=== PATIENT | female | born 1990 | race American Indian/Alaskan Native ===

== ENCOUNTER 2016-09-15 20:23 | Emergency (ER) | payer MEDICAID ==
[2016-09-15] MEDS ORDERED: PROVENTIL IH ONE (22:26)
[2016-09-16 00:14] VITALS: BP 141/102
--- NOTE | 2016-09-16 19:01 | ED Elopement Review ---
ED Pt Elopement review - Call Back decision Pt Call Back Decision: Pt to F/U with PMD
== END 2016-09-16 05:36 | disposition left against medical advice (07) ==
LOC: ED 20:23
DX: R06.09 Other forms of dyspnea (principal); M54.9 Dorsalgia, unspecified; Z53.21 Procedure and treatment not carried out due to patient leaving prior to being seen by health care provider
CPT/HCPCS: 94644

== ENCOUNTER 2017-08-01 20:06 | Outpatient (CLI) | payer MEDICAID ==
[2017-08-01 20:24] VITALS: BP 98/57
[2017-08-01] MEDS ORDERED: LACTATED RINGERS 500 ML IV ONE (20:28)
[2017-08-01] MEDS ORDERED: LACTATED RINGERS 1,000 ML IV ONE (20:30)
[2017-08-01 21:07] LABS: Bacteria,Urine 1+ /HPF (Negative); Bilirubin,Urine NEG (Negative); Blood,Urine SM (Negative); Color,Urine Yellow (Yellow); Mucus,Urine 2+ /HPF
[2017-08-01 21:08] LABS: WBC,Urine > 182.0 /HPF (0.0-6.0)
[2017-08-01 22:00] LABS: Basophils % (Auto) 0.1 % (0.0-1.8); Hematocrit 32.2 % (30.3-42.9); Hemoglobin 10.6 gm/dl (10.1-14.3); Lymphocytes # (Auto) 0.6 K/mm3 (1.2-5.4); Lymphocytes % (Auto) 7.4 % (13.4-35.0); Mean Corpuscular HGB Conc 33 % (30-34); Mean Corpuscular Hemoglobin 29 pg (28-32); Mean Corpuscular Volume 87 fl (79-97); Monocytes # (Auto) 0.6 K/mm3 (0.0-0.8); Monocytes % (Auto) 7.9 % (0.0-7.3); Platelet Count 157 K/mm3 (140-440); Red Blood Count 3.71 M/mm3 (3.65-5.03); Red Cell Distribution Width 14.8 % (13.2-15.2)
[2017-08-01] MEDS ORDERED: POLYCILLIN/NS 2 GM/100 ML 2 GM/100 ML BAG IV SCH (22:00)
== END 2017-08-01 21:35 | disposition home or self-care (01) ==
LOC: TRG 20:06
PROVIDERS: ATTEND Obstetrics & Gynecology
DX: O26.899 Other specified pregnancy related conditions, unspecified trimester (principal); R50.9 Fever, unspecified; R10.9 Unspecified abdominal pain; Z3A.00 Weeks of gestation of pregnancy not specified
CPT/HCPCS: 36415; 59025; 81001; 85025; 96360; 96365; J0290; J7120

== ENCOUNTER 2017-08-07 15:09 | Outpatient (CLI) | payer MEDICAID ==
[2017-08-07 16:08] LABS: Bacteria,Urine 1+ /HPF (Negative); Bilirubin,Urine NEG (Negative); Blood,Urine LG (Negative); Color,Urine Yellow (Yellow); Protein,Urine <15 mg/dL mg/dL (Negative); Urobilinogen,Urine < 2.0 mg/dL (<2.0)
[2017-08-07 16:32] LABS: Basophils % (Auto) 0.3 % (0.0-1.8); Eosinophils % (Auto) 0.1 % (0.0-4.3); Hematocrit 28.1 % (30.3-42.9); Hemoglobin 9.2 gm/dl (10.1-14.3); Lymphocytes # (Auto) 1.1 K/mm3 (1.2-5.4); Lymphocytes % (Auto) 20.9 % (13.4-35.0); Mean Corpuscular HGB Conc 33 % (30-34); Mean Corpuscular Hemoglobin 28 pg (28-32); Mean Corpuscular Volume 87 fl (79-97); Monocytes # (Auto) 0.3 K/mm3 (0.0-0.8); Monocytes % (Auto) 5.4 % (0.0-7.3); Platelet Count 192 K/mm3 (140-440); Red Blood Count 3.24 M/mm3 (3.65-5.03); Red Cell Distribution Width 14.9 % (13.2-15.2)
[2017-08-07 16:36] LABS: Amphetamine Screen,Urine PRESUMPTIVE NEGATIVE; Benzodiazepines Screen,Urine PRESUMPTIVE NEGATIVE; Cannabinoid Screen,Urine PRESUMPTIVE NEGATIVE; Cocaine Screen,Urine PRESUMPTIVE NEGATIVE; Methadone Screen,Urine PRESUMPTIVE NEGATIVE; Opiate Screen,Urine PRESUMPTIVE NEGATIVE
[2017-08-07 17:01] LABS: Hepatitis C Virus Antibody Non-Reactive (NonReactive)
--- NOTE | 2017-08-07 17:22 | Ultrasound Report ---
FINAL REPORT EXAM: US OB > = 14 WEEKS FETUS HISTORY: NO CARE TECHNIQUE: Grayscale and color doppler ultrasound of the fetus was performed for anatomic survey. PRIORS: None. FINDINGS: A single, live intrauterine fetus is present in cephalic presentation with a heart rate of 139 beats per minute. The placenta is grade 1 and fundal in location. No evidence of placenta previa. The maternal cervix is closed measuring 3.3 centimeters in length. The amniotic fluid index is 13.6 centimeters. The 4 chamber view of the heart, stomach, urinary bladder, and kidneys demonstrate no specific abnormality. The cerebellum and cisterna magna were not well seen. No lateral ventricle dilation. The umbilical cord insertion appears normal. The upper and lower extremities are present. The spine was visualized in its entirety without definite or specific abnormality. Biparietal diameter: 32 weeks and 1 day. Head circumference: 34 weeks and 4 days. Abdominal circumference: 34 weeks and 4 days. Femur length: 36 weeks and 0 days. Estimated gestational age based on ultrasound criteria is 34 weeks and 2 days with an SANKET of 09/16/2016. Growth is at the 77th percentile. Estimated weight is 2500 grams. IMPRESSION: 1. Live intrauterine fetus measuring at 34 weeks and 2 days gestational age with an SANKET of 09/16/2016. 2. Nonvisualized cerebellum and cisterna magna, otherwise normal anatomic survey.
--- NOTE | 2017-08-07 17:24 | Ultrasound Report ---
FINAL REPORT EXAM: US OB BPP WO NON-STRESS HISTORY: WELL BEING TECHNIQUE: Grayscale and color doppler ultrasound of the fetus was performed for biophysical profile. PRIORS: None. FINDINGS: A single, live intrauterine fetus is present in cephalic presentation with a heart rate of 139 beats per minute. The placenta is fundal in location. The amniotic fluid index is 13.6 centimeters. Estimated gestational age is 33 weeks and 4 days with an SANKET of 12/15/2016. Biophysical profile score of 8 out of 8 was noted. Scores of 2 out of 2 were given for breathing movements, movements, posterior and tone and qualitative amniotic fluid volume. IMPRESSION: Normal biophysical profile.
[2017-08-07 17:42] LABS: Rubella IgG Antibody Non-Immune (Immune)
[2017-08-09 12:08] VITALS: BP 125/72
== END 2017-08-07 17:34 | disposition home or self-care (01) ==
LOC: TRG 15:09
PROVIDERS: ATTEND Obstetrics & Gynecology
DX: O47.03 False labor before 37 completed weeks of gestation, third trimester (principal); Z79.899 Other long term (current) drug therapy; Z3A.34 34 weeks gestation of pregnancy
CPT/HCPCS: 36415; 59025; 76805; 76819; 80307; 81001; 85025; 85660; 86592; 86706; 86762; 86803; 86850; 86870; 86900; 86901; 87086; 87806

== ENCOUNTER 2017-08-08 02:24 | Inpatient (IN) | payer MEDICAID ==
[2017-08-08] MEDS ORDERED: LACTATED RINGERS 500 ML IV ONE (02:45)
[2017-08-08] MEDS ORDERED: PITOCin/NS 20 UNIT/1000ML DRIP 20,000 MILLIUNITS/1,000 ML BAG IV ONE (03:06)
[2017-08-08] MEDS ORDERED: XYLOCAINE 2% INFILTRATI ONE ×2 (03:07→03:16)
[2017-08-08] MEDS ORDERED: BRETHINE IVP PRN (03:16)
[2017-08-08] MEDS ORDERED: BRETHINE SUB-Q PRN (03:16)
[2017-08-08] MEDS ORDERED: ePHEDrine SULFATE IV PRN (03:16)
[2017-08-08] MEDS ORDERED: MINERAL OIL PO PRN (03:16)
[2017-08-08] MEDS ORDERED: POLYCILLIN/NS 2 GM/100 ML 2 GM/100 ML BAG IV ONE (03:16)
[2017-08-08] MEDS ORDERED: ZOFRAN IV PRN ×2 (03:16→05:01)
--- NOTE | 2017-08-08 03:28 | History and Physical Report ---
History of Present Illness Date of examination: 08/08/17 Date of admission: 08/08/17 03:14 Chief complaint: Painful contractions Patient is 8 cm dilated History of present illness: 27 y/o at ~ 34 wks via sono yesterday returns to [facility] with complaint of painful contractions, she is now ~ 8 cm dilated. Essential hx is patient with no PNC presented to [facility] yesterday afternoon with complaint of VB. She was observed and worked up including complete sono with cervical length. She was ~ 34 wks, cephalic, fundal placenta with cervical length of ~ 3 cm. She has cat 1 tracing and BPP of 8/8. She was not having contractions and was not in labour. She was discharged home and asked to schedule f/u with an OBGYN TEJAL. She is now ~ 8 cm with regular painful contractions. Past History Past Medical History: no pertinent history Past Surgical History: no surgical history [employer] History: chlamydia. denies: gonorrhea, hepatitis B, hepatitis C, herpes, HIV, syphilis, trichomonas Family/Genetic History: denies: hypertension Social history: , full code. denies: smoking, alcohol abuse, prescription drug abuse, IV drug use - Obstetrical History Expected Date of Delivery: 09/16/17 Actual Gestation: 34 Week(s) 3 Day(s) : 4 Para: 3 Hx # Term Pregnancies: 3 Number of Pregnancies: 0 Number of Living Children: 3 Medications and Allergies Allergies Allergy/AdvReac Type Severity Reaction Status Date / Time No Known Allergies Allergy Verified 12/31/13 19:10 Home Medications Medication Instructions Recorded Confirmed Last Taken Type No Known Home Medications [No 08/07/17 08/07/17 Unknown History Reported Home Medications] Active Meds: Active Medications Ephedrine Sulfate (Ephedrine Sulfate) 10 mg IV Q2M PRN PRN Reason: Hypotension Ampicillin Sodium (Polycillin/Ns 2 Gm/100 Ml) 2 gm in 100 mls @ 100 mls/hr IV ONCE ONE; Protocol Stop: 08/08/17 04:15 Ampicillin Sodium (Ampicillin/Ns 1 Gm/50 Ml) 1 gm in 50 mls @ 100 mls/hr IV Q4HR NILESH; Protocol Lactated Ringer's (Lactated Ringers) 1,000 mls @ 125 mls/hr IV DIRECT NILESH Oxytocin/Sodium Chloride (Pitocin/Ns 20 Unit/1000ml Drip) 20 units in 1,000 mls @ 125 mls/hr IV DIRECT NILESH Oxytocin/Sodium Chloride (Pitocin/Ns 30 Unit/500ml) 30 units in 500 mls @ 1 mls /hr IV TITR NILESH; Protocol Lidocaine (Xylocaine 2%) 20 ml INFILTRATI ONCE ONE Stop: 08/08/17 03:17 Mineral Oil (Mineral Oil) 30 ml PO QHS PRN PRN Reason: Constipation Ondansetron HCl (Zofran) 4 mg IV Q8H PRN PRN Reason: Nausea And Vomiting Terbutaline Sulfate (Brethine) 0.25 mg SUB-Q ONCE PRN PRN Reason: Hyperstimulation/Hypertonicity Terbutaline Sulfate (Brethine) 0.25 mg IVP ONCE PRN PRN Reason: Hyperstimulation/Hypertonicity Review of Systems Constitutional: no fever, no chills, no sweats Cardiovascular: no chest pain, no orthopnea, no lightheadedness, no shortness of breath, no dyspnea on exertion, no paroxysmal nocturnal dyspnea, no high blood pressure Respiratory: no excessive sputum, no shortness of breath, no dyspnea on exertion , no respiratory infections Gastrointestinal: no nausea, no vomiting Genitourinary: contractions, no vaginal bleeding, no vaginal discharge, no leakage of fluid - Vital Signs Vital signs: Vital Signs Temp Resp 97.9 F 20 08/08/17 02:25 08/08/17 02:25 Temp Pulse Resp BP Pulse Ox 97.9 F 20 08/08/17 02:25 08/08/17 02:25 - Physical Exam Cardiovascular: Regular rate, Normal S1, Normal S2 Lungs: Positive: Clear to auscultation, Normal air movement Abdomen: Positive: normal appearance, soft. Negative: distention, tenderness, guarding, rigidity Genitourinary (Female): Positive: normal external genitalia Uterus: Positive: enlarged (EFW ~ 3000) Adnexa: both: normal Extremities: Positive: normal - Obstetrical FHR: category 1 Cervical Dilatation: 8 Results All other labs normal. Assessment and Plan A: 27 y/o at 34 weeks in active labour -Cat 1 tracing -In active labour issues -No care -Already 8 cm -Cervical dilation to advanced for BMZ course P: -Admit -routine labs -GBS prophylaxis -Epidural prn -Expectant mgt - Patient Problems (1) 34 weeks gestation of Current Visit: Yes Status: Acute (2) labor in third trimester Current Visit: Yes Status: Acute (3) No care in current Current Visit: Yes Status: Acute
[2017-08-08] MEDS ORDERED: CELESTONE SOLUSPAN IM ONE (03:55)
--- NOTE | 2017-08-08 03:57 | Event Note ---
Date: 08/08/17 Patient with no cervical change in ~ 30 min. Still 8 cm with bulging membrane. Will administer celFunny Or Die course # 1 now and continue expectant mgt.
[2017-08-08] MEDS ORDERED: PITOCin/NS 20 UNIT/1000ML DRIP 20 UNITS/1,000 ML BAG IV SCH (04:00)
[2017-08-08] MEDS ORDERED: PITOCin/NS 30 UNIT/500ML 30 UNITS/500 ML BAG IV SCH (04:00)
[2017-08-08] MEDS ORDERED: LACTATED RINGERS 1,000 ML IV SCH (04:00)
[2017-08-08 04:46] LABS: Amphetamine Screen,Urine PRESUMPTIVE NEGATIVE; Benzodiazepines Screen,Urine PRESUMPTIVE NEGATIVE; Cannabinoid Screen,Urine PRESUMPTIVE NEGATIVE; Cocaine Screen,Urine PRESUMPTIVE NEGATIVE; Methadone Screen,Urine PRESUMPTIVE NEGATIVE; Opiate Screen,Urine PRESUMPTIVE NEGATIVE
[2017-08-08 04:51] LABS: Bilirubin,Urine NEG (Negative); Blood,Urine LG (Negative); Color,Urine Yellow (Yellow); Protein,Urine <15 mg/dL mg/dL (Negative)
[2017-08-08] MEDS ORDERED: NORCO 5/325 PO PRN (05:01)
[2017-08-08] MEDS ORDERED: LANSINOH TP PRN (05:01)
[2017-08-08] MEDS ORDERED: BENADRYL PO PRN (05:01)
[2017-08-08] MEDS ORDERED: DULCOLAX PR PRN (05:01)
[2017-08-08] MEDS ORDERED: TYLENOL PO PRN (05:01)
[2017-08-08] MEDS ORDERED: PHENERGAN PO PRN (05:01)
[2017-08-08] MEDS ORDERED: METHERGINE IM PRN (05:01)
[2017-08-08] MEDS ORDERED: MILK OF MAGNESIA PO PRN (05:01)
[2017-08-08] MEDS ORDERED: PHENERGAN PR PRN (05:01)
[2017-08-08] MEDS ORDERED: TUCKS PAD TP PRN (05:01)
--- NOTE | 2017-08-08 05:01 | Procedure Note ---
OB Delivery Note - Delivery Date of Delivery: 08/08/17 Surgeon: ELENITA MARQUEZ Estimated blood loss: 200cc - Vaginal Delivery presentation: vertex Delivery position: OA Intrapartum events: no care Delivery induction: none Delivery monitor: external FHT, external uterine Route of delivery: Delivery placenta: spontaneous Delivery cord: 3 umbilical vessels Episiotomy: none Delivery laceration: none Anesthesia: none - Infant A at 1 minute: 8 at 5 minutes: 9 Infant Gender: Male (Del @ 04:45 am, weight is 5#10 or 2550 g)
[2017-08-08] MEDS ORDERED: SODIUM CHLORIDE FLUSH SYRINGE 10 ML IV PRN (06:00)
[2017-08-08] MEDS ORDERED: AMPICILLIN/NS 1 GM/50 ML 1 GM/50 ML BAG IV SCH (07:30)
[2017-08-08] MEDS: MOTRIN PO SCH ×3 (12:00→23:20)
[2017-08-08 17:07] LABS: Hematocrit 30.2 % (30.3-42.9); Hemoglobin 10.1 gm/dl (10.1-14.3)
[2017-08-08] MEDS: FEOSOL PO SCH ×2 (18:04→23:19)
[2017-08-08] MEDS: COLACE PO SCH ×2 (18:04→23:20)
[2017-08-08] MEDS: PRENATAL VITAMIN PO SCH (18:05)
[2017-08-09] MEDS: SENOKOT S PO SCH ×2 (00:52→22:18)
[2017-08-09] MEDS ORDERED: M-M-R II VACCINE SUB-Q ONE (05:01)
[2017-08-09] MEDS: MOTRIN PO SCH ×3 (05:20→18:45)
[2017-08-09] MEDS ORDERED: BOOSTRIX IM ONE (06:00)
--- NOTE | 2017-08-09 14:22 | Progress Note ---
Assessment and Plan A: Day 1, Stable No care P: Routine care Plan discharge today, pending discharge Subjective - Subjective Date of service: 08/09/17 Principal diagnosis: S/P , no care Patient reports: appetite normal, voiding normally, pain well controlled, ambulating normally : doing well Objective - Vital Signs Latest vital signs: Vital Signs Temp Pulse Resp BP BP Pulse Ox 08/09/17 08:50 98.4 F 62 18 121/65 98 08/08/17 23:35 70 18 125/68 98 08/08/17 16:55 98.5 F 78 18 133/76 99 Intake and Output 08/08/17 08/09/17 08/09/17 23:59 07:59 15:59 Intake Total 960 240 360 Output Total 1 1 Balance 960 239 359 Intake: Oral 600 240 240 Intake, Free Water 360 120 Output: Urine 1 1 Void 1 1 Other: Total, Intake Amount 240 240 240 Total, Output Amount 1 1 # Voids Indwelling Catheter 1 - Exam Breasts: Present: deferred Cardiovascular: Present: Regular rate Lungs: Present: Clear to auscultation Abdomen: Present: normal appearance, soft Vulva: both: normal Uterus: Present: normal, firm, fundal height below umbilicus Extremities: Present: normal Deep Tendon Reflex Grade: Normal +2 - Labs Labs: Abnormal lab results 08/08/17 Range/Units 16:53 Hct 30.2 L (30.3-42.9) %
--- NOTE | 2017-08-09 14:25 | Discharge Summary ---
Providers - Providers Date of Admission: 08/08/17 03:14 Date of discharge: 08/09/17 Attending physician: ELENITA MARQUEZ Primary care physician: DEBBIE ART Hospitalization Reason for admission: active labor, IUP - , labor Delivery: Episiotomy: none Laceration: none Other procedures: none complications: none Discharge diagnosis: delivery [place] baby: male (5#10) Condition at discharge: Good Disposition: DC-01 TO HOME OR SELFCARE Plan - Discharge Medications Prescriptions: HYDROcodone/ACETAMINOPHEN [[place] 5-325 Tablet] 1 each PO Q6HR #7 tablet Ibuprofen [Motrin 600 MG tab] 600 mg PO Q8H PRN #30 tablet PRN Reason: Pain Multivitamin with Iron [Multivitamins with Iron] 1 each PO DAILY #30 tablet - Provider Discharge Summary Activity: routine, no sex for 6 weeks, no heavy lifting 4 weeks, no strenuous exercise Diet: routine Instructions: routine Additional instructions: [] Smoking cessation referral if applicable(refer to patient education folder for contact #) [] Refer to [facility] Booklet Call your doctor immediately for: * Fever > 100.5 * Heavy vaginal bleeding ( >1 pad per hour) * Severe persistent headache * Shortness of breath * Reddened, hot, painful area to leg or breast * Drainage or odor from incision. * Keep incision clean and dry at all times and follow doctor's instructions regarding bathing/showering - Follow up plan Follow up: ELENITA MARQUEZ MD [Staff Physician] - 6 Weeks
[2017-08-09] MEDS: FEOSOL PO SCH ×2 (14:45→22:17)
[2017-08-09] MEDS: COLACE PO SCH ×2 (14:45→22:18)
[2017-08-09] MEDS: PRENATAL VITAMIN PO SCH (14:45)
[2017-08-10] MEDS: MOTRIN PO SCH ×3 (00:05→12:00)
[2017-08-10] MEDS: FEOSOL PO SCH (10:27)
[2017-08-10] MEDS: COLACE PO SCH (10:27)
[2017-08-10] MEDS: PRENATAL VITAMIN PO SCH (10:27)
[2017-08-10] MEDS: SENOKOT S PO SCH (15:52)
[2017-08-10] MEDS ORDERED: M-M-R II VACCINE SUB-Q ONE (18:00)
[2017-08-10 20:09] VITALS: BP 140/67
== END 2017-08-10 18:15 | disposition home or self-care (01) | DRG 775 ==
LOC: TRG 02:24 → LD 03:14 → OB 06:48
PROVIDERS: ADMIT Obstetrics & Gynecology Gynecology; ATTEND Obstetrics & Gynecology Gynecology
PROC: 10E0XZZ Delivery of Products of Conception, External Approach (ICD-10-PCS; principal; 2017-08-08)
PROC: 3E0234Z Introduction of Serum, Toxoid and Vaccine into Muscle, Percutaneous Approach (ICD-10-PCS; 2017-08-09)
DX: O60.14X0 Preterm labor third trimester with preterm delivery third trimester, not applicable or unspecified (principal); Z3A.34 34 weeks gestation of pregnancy; Z37.0 Single live birth; Z23 Encounter for immunization
CPT/HCPCS: 36415; 80307; 81001; 85014; 85018; 86592; 86850; 86870; 86900; 86901; 90707; J0290; J0702; J2590; J7120